=== PATIENT | male | born 1965 | race Two or more races ===

== ENCOUNTER → 2018-08-21 | Outpatient (CLI) | payer BC ==
--- NOTE | 2018-08-21 08:19 | XR ---
Pre-MRI orbits HISTORY: Pre-MRI, screening for metal 3 views of the orbits There is no evident radiopaque foreign body. Bone mineralization is maintained. Paranasal sinuses are well aerated. IMPRESSION: No evident contraindication to MRI.
--- NOTE | 2018-08-21 16:06 | MR ---
EXAMINATION TYPE: MR knee RT wo con DATE OF EXAM: 08/21/2018 COMPARISON: No prior MRI brain the available at this location. Plain film dated 08/05/2018 from [facility]. HISTORY: Right knee pain TECHNIQUE: Multiplanar, multisequence imaging of the right knee is performed without IV contrast. FINDINGS: MEDIAL MENISCUS: Anterior horn medial meniscus appears intact. There is increased signal in an obliqu e angle within the posterior horn medial meniscus. This may communicate with the inferior articular s urface the midportion. Consider an oblique tear on differential. LATERAL MENISCUS: Anterior and posterior horns are intact without tear. CRUCIATE LIGAMENTS: There is an anterior cruciate ligament repair on the repair appears intact. Poste rior cruciate ligament appears intact. COLLATERAL LIGAMENTS: The medial collateral ligament and lateral collateral ligament complex are inta ct and unremarkable. EXTENSOR MECHANISM: Visualized quadriceps and patellar tendons are intact. EFFUSION: Moderate joint effusion is present. POPLITEAL CYST: No popliteal/christianson cyst. TRICOMPARTMENT SPACES: There is narrowing of the medial lateral compartment joint spaces. Patellofemo ral joint space appears preserved. CARTILAGE: There is thinning of the articular cartilage of the medial lateral joint spaces. BONE MARROW SIGNAL: No focal abnormal marrow signal is appreciated. Postsurgical changes from ACL rep air is evident. OTHER: No additional significant abnormality is appreciated. IMPRESSION: Post ACL repair remains intact. 2. 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 3. Moderate joint effusion. 4. Oblique tear posterior horn medial meniscus.
== END | disposition home or self-care (01) ==
LOC: RADMRIMAIN 07:43
PROVIDERS: ATTEND Orthopaedic Surgery
DX: S83.241A Other tear of medial meniscus, current injury, right knee, initial encounter (principal); M17.11 Unilateral primary osteoarthritis, right knee; Z13.89 Encounter for screening for other disorder
CPT/HCPCS: 70030

== ENCOUNTER → 2018-09-02 | Outpatient (CLI) | payer BC | END | disposition home or self-care (01) | LOC: RADMRIMAIN 17:52 | PROVIDERS: ATTEND Psychiatry & Neurology Neurology | DX: Z53.9 Procedure and treatment not carried out, unspecified reason (principal) ==